=== PATIENT | female | born 1975 | race Caucasian/White ===

== ENCOUNTER 2021-05-19 06:38 | Day surgery (SDC) | payer OTHER, SELFPAY ==
[~2021-05-19] VITALS: Ht 165.1 cm; Wt 68.9 kg
[2021-05-19] MEDS ORDERED: PROPOFOL 200 MG/20 ML VIAL IV ONE (08:47)
[2021-05-19] MEDS ORDERED: MIDAZOLAM 2 MG/2 ML VIAL ONE (08:47)
[2021-05-19 08:48] LABS: BASOPHILS % (AUTO) 0.5 % (0.0-2.0); EOSINOPHILS # (AUTO) 0.1 K/uL (0-0.4); EOSINOPHILS % (AUTO) 1.3 % (0.0-4.0); HEMATOCRIT 40.8 % (36-48); HEMOGLOBIN 13.5 g/dL (12.0-16.0); LYMPHOCYTES # (AUTO) 1.3 K/uL (2.5-16.5); LYMPHOCYTES % (AUTO) 26.8 % (20.5-51.1); MEAN CORPUSCULAR HEMOGLOBIN 30 pg (27-31); MEAN CORPUSCULAR HGB CONC 33 g/dL (33-37); MEAN CORPUSCULAR VOLUME 88.9 fL (80-94); MONOCYTES # (AUTO) 0.4 K/uL (0.8-1.0); NEUTROPHILS # (AUTO) 3.2 K/uL (1.8-7.7); NEUTROPHILS % (AUTO) 64.4 % (42.2-75.2); PLATELET COUNT (AUTO) 180 K/uL (140-450); RED BLOOD CELL COUNT(AUTO) 4.59 MIL/uL (4.20-5.40); RED CELL DISTRIBUTION WIDTH 14.4 % (11.6-13.7)
[2021-05-19] MEDS ORDERED: fentaNYL citrate 0.05 MG/ML VIAL ONE (08:48)
[2021-05-19] MEDS ORDERED: LIDOCAINE MPF 2% 100 MG/5 ML VIAL INJ ONE (08:48)
[2021-05-19 09:02] LABS: ALBUMIN 3.4 g/dL (3.4-5.0); CARBON DIOXIDE 27.2 mmol/L (21-32); CREATININE 0.7 mg/dL (0.6-1.3); POTASSIUM 4.2 mmol/L (3.5-5.1); TOTAL BILIRUBIN 0.4 mg/dL (0.0-1.0)
[2021-05-20] MEDS ORDERED: HYDR-5080 PO (06:49)
[2021-05-20] MEDS ORDERED: ATEN25TA7 PO (06:49)
[2021-05-20] MEDS ORDERED: OMEP20EC11 PO (06:49)
== END 2021-05-19 11:20 | disposition home or self-care (01) ==
LOC: MMU 06:38 → MDS 06:38
PROVIDERS: ATTEND Internal Medicine Gastroenterology
DX: K83.1 Obstruction of bile duct (principal); I10 Essential (primary) hypertension; K21.9 Gastro-esophageal reflux disease without esophagitis; Z79.899 Other long term (current) drug therapy; Z20.822 Contact with and (suspected) exposure to COVID-19
CPT/HCPCS: 36415; 43261; 80053; 81025; 85025; 86677; J2001; J2250; J2704; J3010; J7120; Q9967; U0003; 77003

== ENCOUNTER 2021-05-20 00:01 | Inpatient (IN) | payer OTHER, SELFPAY ==
[~2021-05-20] VITALS: Ht 165.1 cm; Wt 68.5 kg
[2021-05-20 00:10] VITALS: BP 164/89
--- NOTE | 2021-05-20 00:10 | NUR ---
TO BED VIA WHEELCHAIR
--- NOTE | 2021-05-20 00:32 | NUR ---
46-year-old c/o abdominal pain. 10/10 pain in the epigastric that is constant and feels like pressure, tightening, and sharp. denies fevers and has been vomiting. difficulty tolerating anything through the mouth. Last bowel movement was normal this morning. No fevers. Patient states that when they did her ERCP they were unable to locate a gallstone. AAOx4. GCS15. PMH: HTN, hysterectomy nka
[2021-05-20] MEDS ORDERED: ONDANSETRON 4 MG/2 ML VIAL IVP ONE ×2 (00:35→04:15)
[2021-05-20] MEDS ORDERED: MORPHINE SULFATE 4 MG/ML SYR IVP ONE (00:35)
[2021-05-20 00:57] LABS: BASOPHILS % (AUTO) 0.1 % (0.0-2.0); HEMATOCRIT 44.9 % (36-48); HEMOGLOBIN 14.8 g/dL (12.0-16.0); LYMPHOCYTES # (AUTO) 0.9 K/uL (2.5-16.5); LYMPHOCYTES % (AUTO) 7.9 % (20.5-51.1); MEAN CORPUSCULAR HEMOGLOBIN 29 pg (27-31); MEAN CORPUSCULAR HGB CONC 33 g/dL (33-37); MEAN CORPUSCULAR VOLUME 88.5 fL (80-94); MONOCYTES # (AUTO) 0.5 K/uL (0.8-1.0); MONOCYTES % (AUTO) 4.6 % (1.7-9.3); NEUTROPHILS # (AUTO) 9.9 K/uL (1.8-7.7); NEUTROPHILS % (AUTO) 87.4 % (42.2-75.2); PLATELET COUNT (AUTO) 215 K/uL (140-450); RED BLOOD CELL COUNT(AUTO) 5.07 MIL/uL (4.20-5.40); RED CELL DISTRIBUTION WIDTH 14.4 % (11.6-13.7)
[2021-05-20 01:20] LABS: WHITE BLOOD COUNT (AUTO) 11.3 K/uL (4.8-10.8)
[2021-05-20 01:21] LABS: ALBUMIN 3.8 g/dL (3.4-5.0); ANION GAP 13.8 (8-16); CARBON DIOXIDE 26.7 mmol/L (21-32); CREATININE 0.7 mg/dL (0.6-1.3); POTASSIUM 3.5 mmol/L (3.5-5.1); TOTAL BILIRUBIN 1.6 mg/dL (0.0-1.0)
[2021-05-20] MEDS ORDERED: HYDROmorphone PFS 2 MG/ML SYR IVP SCH (02:10)
[2021-05-20] MEDS ORDERED: HYDROmorphone PFS 2 MG/ML SYR IVP ONE ×2 (02:25→04:15)
[2021-05-20] MEDS: NACL 0.9% 2,000 ML IV SCH ×2 (03:25→05:47)
[2021-05-20] MEDS ORDERED: KCL 20 MEQ/WATER INJ PREMIX 200 ML IV PRN (05:00)
[2021-05-20] MEDS ORDERED: MAGNESIUM OXIDE 400 MG TAB PO PRN (05:00)
[2021-05-20] MEDS ORDERED: MAG SULF 2000 MG/WATER PREMIX 50 ML IV PRN (05:00)
--- NOTE | 2021-05-20 05:26 | NUR ---
[facility] CALLED AND GAVE PT ROOM 111B
--- NOTE | 2021-05-20 05:39 | NUR ---
patient tele hold in bed 9
[2021-05-20] MEDS: HYDROcodone/APAP 5/325 MG 1 TAB TAB PO PRN ×3 (06:01→15:05)
--- NOTE | 2021-05-20 06:07 | NUR ---
patient disconnected from monitor and fluids and patient ambulated patient to the bathroom with a steady gait
[2021-05-20 06:42] LABS: BILIRUBIN,DIRECT 0.5 mg/dL (0.0-0.3); TOTAL BILIRUBIN 1.6 mg/dL (0.0-1.0)
[2021-05-20] MEDS ORDERED: ATEN25TA7 PO (06:49)
[2021-05-20] MEDS ORDERED: OMEP20EC11 PO (06:49)
[2021-05-20] MEDS ORDERED: HYDR-5080 PO (06:49)
[2021-05-20 07:05] LABS: BASOPHILS % (AUTO) 0.1 % (0.0-2.0); HEMATOCRIT 41.8 % (36-48); HEMOGLOBIN 13.9 g/dL (12.0-16.0); LYMPHOCYTES # (AUTO) 0.7 K/uL (2.5-16.5); MEAN CORPUSCULAR HEMOGLOBIN 30 pg (27-31); MEAN CORPUSCULAR HGB CONC 33 g/dL (33-37); MEAN CORPUSCULAR VOLUME 88.6 fL (80-94); MONOCYTES # (AUTO) 0.4 K/uL (0.8-1.0); NEUTROPHILS # (AUTO) 9.8 K/uL (1.8-7.7); NEUTROPHILS % (AUTO) 89.9 % (42.2-75.2); PLATELET COUNT (AUTO) 180 K/uL (140-450); RED BLOOD CELL COUNT(AUTO) 4.72 MIL/uL (4.20-5.40); RED CELL DISTRIBUTION WIDTH 14.7 % (11.6-13.7); WHITE BLOOD COUNT (AUTO) 10.9 K/uL (4.8-10.8)
[2021-05-20] MEDS: LACTATED RINGERS 1,000 ML IV SCH ×4 (07:05→21:17)
--- NOTE | 2021-05-20 07:13 | NUR ---
Pt report given to Katie REDDY. Transfer of care at this time.
--- NOTE | 2021-05-20 07:14 | NUR ---
REPORT RECEIVED FROM ANTONELLA RN FOR CONTUNITY OF CARE
[2021-05-20 07:16] LABS: ALBUMIN 3.1 g/dL (3.4-5.0); CREATININE 0.7 mg/dL (0.6-1.3); TOTAL BILIRUBIN 1.3 mg/dL (0.0-1.0)
--- NOTE | 2021-05-20 07:58 | NUR ---
PATIENT HAS BEEN SCREENED AND CATEGORIZED LOW NUTRITION RISK. PATIENT WILL BE SEEN WITHIN 7 DAYS OF ADMISSION. 05/24/[address]
--- NOTE | 2021-05-20 08:09 | NUR ---
Patient will be admitted to care of . Admited to TELE. Will go to room 111B. Belongings list completed. Report to MAUREEN LLANES. PT TAKEN WITH SUSIE, EMT
[2021-05-20 09:00] VITALS: BP 140/77
[2021-05-20] MEDS: ONDANSETRON 4 MG/2 ML VIAL IVP PRN ×2 (09:04→13:18)
[2021-05-20] MEDS: HYDROmorphone 1 MG/ML AMP IVP PRN ×3 (09:04→21:03)
[2021-05-20 12:00] VITALS: BP 139/68
[2021-05-20 16:00] VITALS: BP 145/87
--- NOTE | 2021-05-20 19:29 | NUR ---
RECEIVED PT REPORT FROM AM SHIFT RN. PT IS A&O X4, AMBULATORY. IVF LR 200ML/HR, 20 G LAC. ON ROOM AIR, SKIN INTACT. SAFETY MEASURES IN PLACE. PT STABLE. WILL CONTINUE TO MONITOR.
[2021-05-20 20:00] VITALS: BP 134/81
--- NOTE | 2021-05-20 21:03 | NUR ---
PT WAS FEELING PAIN IN ABDOMEN 04/14. ADMINISTERED PAIN MED. WILL REASSESS IN AN HOURS. HELPED PT AMBULATE TO THE BATHROOM. WILL CONTINUE TO MONITOR.
[2021-05-21] MEDS: ACETAMINOPHEN 325 MG TAB PO PRN (03:23)
[2021-05-21] MEDS: HYDROmorphone 1 MG/ML AMP IVP PRN ×5 (03:23→21:17)
--- NOTE | 2021-05-21 03:28 | NUR ---
ADMINISTERED PAIN MED FOR PT. STATED 9/10 PAIN AND SAID THE PAIN WAS INTERRUPTING SLEEP. WILL CONTINUE TO MONITOR.
[2021-05-21 04:00] VITALS: BP 126/82
--- NOTE | 2021-05-21 05:12 | NUR ---
PT'S MOM PAIGE CALLED. SHE WANTED TO KNOW THE STATUS OF HER DAUGHTER. I LET HER KNOW THAT PT HAS BEEN STABLE AND THE PAIN IS BEING TAKEN CARE OF WITH PAIN MEDS.
[2021-05-21] MEDS: LACTATED RINGERS 1,000 ML IV SCH ×3 (05:20→17:32)
[2021-05-21 07:05] LABS: HEMATOCRIT 39.5 % (36-48); HEMOGLOBIN 13.1 g/dL (12.0-16.0); LYMPHOCYTES % (AUTO) 12.2 % (20.5-51.1); MEAN CORPUSCULAR HEMOGLOBIN 29 pg (27-31); MEAN CORPUSCULAR HGB CONC 33 g/dL (33-37); MEAN CORPUSCULAR VOLUME 88.8 fL (80-94); MONOCYTES # (AUTO) 0.5 K/uL (0.8-1.0); MONOCYTES % (AUTO) 6.4 % (1.7-9.3); NEUTROPHILS # (AUTO) 6.5 K/uL (1.8-7.7); NEUTROPHILS % (AUTO) 81.4 % (42.2-75.2); PLATELET COUNT (AUTO) 168 K/uL (140-450); RED BLOOD CELL COUNT(AUTO) 4.45 MIL/uL (4.20-5.40); RED CELL DISTRIBUTION WIDTH 14.5 % (11.6-13.7)
[2021-05-21 07:35] LABS: ALBUMIN 2.8 g/dL (3.4-5.0); ANION GAP 14.4 (8-16); CARBON DIOXIDE 24.9 mmol/L (21-32); CHOL/HDL RATIO 2.9 (1-4.5); CREATININE 0.6 mg/dL (0.6-1.3); MAGNESIUM 1.9 mg/dL (1.8-2.4); POTASSIUM 3.3 mmol/L (3.5-5.1); TOTAL BILIRUBIN 1.4 mg/dL (0.0-1.0)
--- NOTE | 2021-05-21 07:45 | NUR ---
PASSED ON BEDSIDE ENDORSEMENT TO AM SHIFT RN. PT STABLE. CALL LIGHT WITHIN REACH, SAFETY MEASURES IN PLACE.
[2021-05-21 08:00] VITALS: BP 140/80
--- NOTE | 2021-05-21 08:00 | NUR ---
RECEIVED REPORT FROM ASSET PROTECTION OFFICER FOR CONTINUITY OF CARE. PATIENT ALERT AWAKE ORIENTED X4, NOT IN ANY DISTRESS NOTED. PATIENT ASLEEP BUT AROUSABLE. WITH IVF ON GOING AND INFUSING WELL. PATIENT C/O ABDOMINAL PAIN AND HEADACHE, MEDICATION NOT DUE YET EXPLAINED TO THE PATIENT VERBALIZED UNDERSTANDING. WILL CONTINUE TO MONITOR.
[2021-05-21] MEDS: PANTOPRAZOLE 40 MG TABEC PO SCH (08:50)
[2021-05-21] MEDS: POTASSIUM CHLORIDE 10 MEQ TABER PO PRN (08:51)
[2021-05-21] MEDS: atenoloL 25 MG TAB PO SCH (08:51)
--- NOTE | 2021-05-21 09:00 | NUR ---
SEEN BY DR. STEPHENS AND ORDER TO ADVANCE DIET TO CLEAR LIQUID. PATIENT IS ASKING FOR COFFEE, EXPLAINED TO THE PATIENT THAT SHE'S ON CLEAR LIQUID, WILL CALL MD. WILL CONTINUE TO MONITOR.
--- NOTE | 2021-05-21 12:07 | NUR ---
DR. ZHANG CALLED AND AGREED ON COFFEE BUT JUST ONCE EXPALINED TO THE PATIENT AND VERBALIZED UNDERSTANDING.
--- NOTE | 2021-05-21 13:04 | NUR ---
C/O SEVERE HEADACHE AND ABOMINAL PAIN WITH NAUSEA, MEIDCATION GIVEN ORDERED. WILL CONTINUE TO MONITOR.
[2021-05-21] MEDS: ONDANSETRON 4 MG/2 ML VIAL IVP PRN (13:09)
[2021-05-21] MEDS ORDERED: FENTANYL C 0.025 MG/HR PATCH TD SCH (14:30)
[2021-05-21] MEDS ORDERED: FENTANYL C 0.025 MG/HR PATCH TD ONE (15:45)
[2021-05-21 16:00] VITALS: BP 145/85
--- NOTE | 2021-05-21 16:07 | NUR ---
DURAGESIC PATCH GIVEN AND PLACED ON THE RIGHT UPPER ARM. WILL CONTINUE TO MONITOR.
--- NOTE | 2021-05-21 17:00 | NUR ---
SPOKE TO DR. KATZ AND DR. ZHANG THAT PATIENT IS STILL UNDECIDED IF SHE WILL AGREE ON SURGERY, DR. KATZ EXPLAINED THE PROCEDURE AT BEDSIDE. SHE SAID SHE WILL THINK ABOUT IT AND SHE WILL DISCUSS TO HIS . I INFORMED HER THAT DR. KATZ SCHEDULE IT FOR 12 NOON TMW, PACKING AND FINAL ASSEMBLY SUPERVISOR NOTIFIED. PATIENT WILL TELL THE NURSE TOMORROW AND PATIENT WILL KEEP NPO AFTER MIDNIGHT PATIENT VERBALIZED UNDERSTANDING.
--- NOTE | 2021-05-21 17:37 | NUR ---
PATIENT COMPLAIN OF ABDOMINAL PAIN AND HEADACHE 8/, MEDICATED WITH DILAUDID ORDER. WILL CONTINUE TO MONITOR.
--- NOTE | 2021-05-21 19:30 | NUR ---
REPORT GIVEN TO MAUREEN WATERMAN FOR CONTINUITY OF CARE. PATIENT IN STABLE CONDITION.
--- NOTE | 2021-05-21 19:35 | NUR ---
RECEIVED PT ON BED, AAOX4, ABLE TO MAKE NEEDS KNOWN, CLEAR LIQUID DINNER TRAY PROVIDED, TOLERATED WELL, COMPLAINING OF ABDOMINAL PAIN, WILL MEDICATE WHEN DUE, IVF INFUSING WELL, PLAN OF CARE DISCUSSED, SAFETY MEASURES IN PLACE, CALL LIGHT WITHIN REACH.
[2021-05-21 20:00] VITALS: BP 142/77
--- NOTE | 2021-05-22 | NUR ---
SEEN PT SLEEPING, VISIBLE CHEST RISE AND FALL, NO SIGNS OF DISTRESS, IVF INFUSING WELL, NPO AFTER MIDNIGHT STATUS, CONTINUE TO MONITOR CLOSELY.
[2021-05-22] MEDS: HYDROmorphone 1 MG/ML AMP IVP PRN ×5 (01:28→22:14)
--- NOTE | 2021-05-22 01:28 | NUR ---
PT AWAKE COMPLAINING OF PAIN, AMBULATED TO BR AND VOIDED FREELY, MEDICATED PRN FOR PAIN WITH DILAUDID IVP ORDERED, PT STATED SHE DECIDED TO GO WITH LAP CHOLECYSTECTOMY TODAY, MAINTAINED ON NPO AFTER MIDNIGHT, WILL ENDORSE TO AM SHIFT, IVF INFUSING WELL.
[2021-05-22] MEDS: LACTATED RINGERS 1,000 ML IV SCH ×3 (02:39→19:50)
[2021-05-22 04:00] VITALS: BP 124/75
[2021-05-22] MEDS: ACETAMINOPHEN 325 MG TAB PO PRN (05:04)
--- NOTE | 2021-05-22 05:20 | NUR ---
PT COMPLAINING OF HEADACHE AND ABDOMINAL PAIN, MEDICATED PRN WITH DILAUDID IVP, ICE PACK PROVIDED PER REQUEST FOR HEADACHE, MAINTAIN ON NPO FOR SURGERY TODAY, IVF INFUSING WELL, MONITORED CLOSELY.
[2021-05-22 06:53] LABS: BASOPHILS % (AUTO) 0.1 % (0.0-2.0); EOSINOPHILS % (AUTO) 0.2 % (0.0-4.0); HEMATOCRIT 37.6 % (36-48); HEMOGLOBIN 12.6 g/dL (12.0-16.0); LYMPHOCYTES # (AUTO) 0.8 K/uL (2.5-16.5); LYMPHOCYTES % (AUTO) 10.9 % (20.5-51.1); MEAN CORPUSCULAR HEMOGLOBIN 30 pg (27-31); MEAN CORPUSCULAR HGB CONC 33 g/dL (33-37); MEAN CORPUSCULAR VOLUME 88.8 fL (80-94); MONOCYTES # (AUTO) 0.6 K/uL (0.8-1.0); MONOCYTES % (AUTO) 7.9 % (1.7-9.3); NEUTROPHILS # (AUTO) 6.1 K/uL (1.8-7.7); NEUTROPHILS % (AUTO) 80.9 % (42.2-75.2); PLATELET COUNT (AUTO) 153 K/uL (140-450); RED BLOOD CELL COUNT(AUTO) 4.23 MIL/uL (4.20-5.40); RED CELL DISTRIBUTION WIDTH 14.3 % (11.6-13.7); WHITE BLOOD COUNT (AUTO) 7.5 K/uL (4.8-10.8)
--- NOTE | 2021-05-22 07:20 | NUR ---
PT SLEEPING, NO SIGNS OF DISTRESS, REPORT GIVEN TO MAUREEN RICKETTS FOR CONTINUITY OF CARE.
[2021-05-22 07:49] LABS: ALBUMIN 2.6 g/dL (3.4-5.0); ANION GAP 15.1 (8-16); CARBON DIOXIDE 24.4 mmol/L (21-32); CREATININE 0.5 mg/dL (0.6-1.3); POTASSIUM 3.5 mmol/L (3.5-5.1); TOTAL BILIRUBIN 1.1 mg/dL (0.0-1.0)
[2021-05-22 08:00] VITALS: BP 119/73
--- NOTE | 2021-05-22 08:00 | NUR ---
RECEIVED REPORT FROM MAUREEN WATERMAN FOR CONTINUITY OF CARE. PATIENT ALERT AWAKE ORIENTED X4, NOT IN ANY DISTRESS NOTED. WITH IVF ON GOING AND INFUSING WELL. PAIN ASSESSMENT PATIENT STILL WITH PAIN ON HER ABDOMEN AND HEADACHE. EXPLAINED TO HER THAT MEDICATION IS NOT DUE YET. IVF ON GOING AND INFUSING WELL. NPO OBSERVED FOR SURGERY TODAY. NEEDS ATTENDED. WILL CONTINUE TO MONITOR.
[2021-05-22] MEDS: ONDANSETRON 4 MG/2 ML VIAL IVP PRN (09:25)
[2021-05-22] MEDS: atenoloL 25 MG TAB PO SCH (09:25)
[2021-05-22] MEDS: PANTOPRAZOLE 40 MG TABEC PO SCH (09:25)
--- NOTE | 2021-05-22 10:00 | NUR ---
SEEN BY DR. ZHANG AND DISCUSSED THE PLAN OF CARE.
[2021-05-22] MEDS ORDERED: SUMAtriptan succinate 25 MG TAB PO PRN (10:40)
[2021-05-22 16:00] VITALS: BP 112/65
[2021-05-22] MEDS ORDERED: BUPIVACAINE-MPF/EPI 0.25% 30 ML VIAL INJ ONE (17:46)
--- NOTE | 2021-05-22 18:00 | NUR ---
PATIENT OFF FLOOR , WENT TO OR. IN STABLE CONDITION.
[2021-05-22] MEDS ORDERED: SEVOFLURANE 250 ML BTL INH ONE (18:15)
[2021-05-22] MEDS ORDERED: fentaNYL citrate 0.05 MG/ML VIAL ONE (18:23)
[2021-05-22] MEDS ORDERED: MIDAZOLAM 2 MG/2 ML VIAL ONE (18:24)
[2021-05-22] MEDS ORDERED: SUCCINYLCHOLINE CHLORIDE 200 MG/10 ML VIAL IVP ONE (19:06)
[2021-05-22] MEDS ORDERED: ROCURONIUM 50 MG/5 ML VIAL IV ONE (19:07)
[2021-05-22] MEDS ORDERED: ceFAZolin 1,000 MG VIAL ONE ×2 (19:07)
[2021-05-22] MEDS ORDERED: METOCLOPRAMIDE 10 MG/2 ML INJ VIAL ONE (19:07)
[2021-05-22] MEDS ORDERED: DEXAMETHASONE 4 MG/ML VIAL ONE ×2 (19:07)
[2021-05-22] MEDS ORDERED: LIDOCAINE 2% 100 MG/5 ML SYR IVP ONE (19:11)
[2021-05-22] MEDS ORDERED: PROPOFOL 200 MG/20 ML VIAL IV ONE (19:11)
[2021-05-22] MEDS ORDERED: KETOROLAC 30 MG/ML VIAL ONE (19:15)
[2021-05-22] MEDS ORDERED: ONDANSETRON 4 MG/2 ML VIAL ONE (19:20)
[2021-05-22] MEDS ORDERED: GLYCOPYRROLATE 0.2 MG/ML VIAL ONE ×2 (19:22)
[2021-05-22] MEDS ORDERED: NEOSTIGMINE 1:1000 10 MG/10 ML VIAL ONE (19:22)
[2021-05-22] MEDS ORDERED: MORPHINE SULFATE 4 MG/ML SYR IV PRN (19:40)
[2021-05-22] MEDS ORDERED: HYDROmorphone 1 MG/ML AMP IVP PRN (19:50)
[2021-05-22] MEDS ORDERED: ONDANSETRON 4 MG/2 ML VIAL IVP PRN (19:50)
[2021-05-22] MEDS ORDERED: MEPERIDINE 25 MG/ML SYR IVP PRN (19:50)
--- NOTE | 2021-05-22 19:50 | NUR ---
REPORT GIVENB TO TEST RACK OPERATOR FOR CONTINUITY OF CARE. PATIENT IS STILL IN OR.
[2021-05-22] MEDS ORDERED: HYDROmorphone PFS 2 MG/ML SYR ONE (20:05)
[2021-05-23] MEDS: MORPHINE SULFATE 2 MG/ML SYR IVP PRN ×4 (00:56→23:58)
[2021-05-23] MEDS: HYDROmorphone 1 MG/ML AMP IVP PRN ×2 (03:38→09:36)
[2021-05-23 04:00] VITALS: BP 115/68
[2021-05-23] MEDS: LACTATED RINGERS 1,000 ML IV SCH ×3 (06:30→23:31)
--- NOTE | 2021-05-23 07:15 | NUR ---
RECEIVED REPORT FROM ASSEMBLY MEMBER NURSE FOR CONTINUITY OF CARE. PATIENT STABLE. NO S/S OF DISTRESS. BREATHING SYMMETRICAL. FLUIDS RUNNING PER MD ORDER, IV INTACT, DRY, PATENT. CALL LIGHT IN REACH. ALL SAFETY MEASURES IN PLACE.
[2021-05-23 07:35] LABS: BASOPHILS % (AUTO) 0.2 % (0.0-2.0); EOSINOPHILS % (AUTO) 0.2 % (0.0-4.0); HEMATOCRIT 37.4 % (36-48); HEMOGLOBIN 12.5 g/dL (12.0-16.0); LYMPHOCYTES # (AUTO) 0.9 K/uL (2.5-16.5); LYMPHOCYTES % (AUTO) 14.2 % (20.5-51.1); MEAN CORPUSCULAR HEMOGLOBIN 30 pg (27-31); MEAN CORPUSCULAR HGB CONC 34 g/dL (33-37); MEAN CORPUSCULAR VOLUME 88.6 fL (80-94); MONOCYTES # (AUTO) 0.5 K/uL (0.8-1.0); MONOCYTES % (AUTO) 7.1 % (1.7-9.3); NEUTROPHILS % (AUTO) 78.3 % (42.2-75.2); PLATELET COUNT (AUTO) 180 K/uL (140-450); RED BLOOD CELL COUNT(AUTO) 4.22 MIL/uL (4.20-5.40); RED CELL DISTRIBUTION WIDTH 14.3 % (11.6-13.7); WHITE BLOOD COUNT (AUTO) 6.4 K/uL (4.8-10.8)
[2021-05-23 07:45] LABS: ALBUMIN 2.6 g/dL (3.4-5.0); ANION GAP 16.7 (8-16); CARBON DIOXIDE 21.7 mmol/L (21-32); CREATININE 0.5 mg/dL (0.6-1.3); MAGNESIUM 1.9 mg/dL (1.8-2.4); POTASSIUM 3.4 mmol/L (3.5-5.1)
[2021-05-23 08:00] VITALS: BP 156/87
[2021-05-23] MEDS: PANTOPRAZOLE 40 MG TABEC PO SCH (08:53)
[2021-05-23] MEDS: atenoloL 25 MG TAB PO SCH (08:53)
--- NOTE | 2021-05-23 09:16 | NUR ---
DC PLANNING: CM SPOKE WITH THE PATIENT AT BEDSIDE, CONFIRMED HER ADDRESS AND PHONE NUMBER PER THE FACE SHEET. THE PATIENT LIVES IN A SINGLE STORY HOUSE WITH HER CHILDREN AND GRANDCHILDREN AND HAS NO H/O HOME HEALTH OR DME USE. THE PATIENT IS S/P LAP LUCIE ON 05/22 AND C/O CONSIDERABLE PAIN TODAY, IS TAKING MORPHINE AND DILAUDID IV. SHE STATES THAT HER SISTER WILL STAY WITH HER TO PROVIDE ASSISTANCE WHEN SHE IS DISCHARGED. DC PLAN IS FOR THE PATIENT TO RETURN HOME WITH FAMILY, CM WILL FOLLOW FOR NEEDS.
[2021-05-23] MEDS: POTASSIUM CHLORIDE 10 MEQ TABER PO PRN (09:38)
--- NOTE | 2021-05-23 09:38 | NUR ---
PATIENT COMPLAINED OF PAIN 04/14. PATIENT MEDICATED PER MD ORDER. EDUCATED PT ON MEDICATION GIVEN. PT VERBALIZED UNDERSTANDING. NO S/S OF DISTRESS. BREAKFAST TRAY AT BEDSIDE. IV FLUIDS RUNNING PER MD ORDERS. CALL LIGHT IN REACH. ALL SAFETY MEASURES IN PLACE.
--- NOTE | 2021-05-23 12:01 | NUR ---
PT RESTING IN BED. STABLE. NO S/S OF DISTRESS. BREATHING SYMMETRICAL. CALL LIGHT IN REACH. ALL SAFETY MEASURES IN PLACE
--- NOTE | 2021-05-23 12:37 | NUR ---
PATIENT COMPLAINED OF PAIN 03/14. MEDICATED PT PER MD ORDERS. EDUCATED PT ON MEDICATION GIVEN. PT VERBALIZED UNDERSTANDING. CALL LIGHT IN REACH. ALL SAFETY MEASURES IN PLACE. WILL REASSESS.
[2021-05-23] MEDS ORDERED: SIMETHICONE 80 MG TAB.CHEW PO PRN (12:55)
[2021-05-23] MEDS: HYDROcodone/APAP 5/325 MG 1 TAB TAB PO PRN (15:40)
--- NOTE | 2021-05-23 15:40 | NUR ---
PT COMPLAINED OF PAIN 01/12. PATIENT REFUSE PAIN MEDICATION.
--- NOTE | 2021-05-23 18:45 | NUR ---
PATIENT COMPLAINED OF PAIN 03/14. MEDICATED PER MD ORDER. EDUCATED ON MEDICATION GIVEN. PATIENT VERBALIZED UNDERSTANDING. IV RUNNING PER MD ORDERS. CALL LIGHT IN REACH. NO S/S OF DISTRESS. ALL SAFETY MEASURES. IN PLACE.
--- NOTE | 2021-05-23 19:35 | NUR ---
ENDORSED PT TO CUT OFF SAWYER LOG NURSE. PT STABLE. NO S/S OF DISTRESS. CALL LIGHT IN REACH. ALL SAFETY MEASURES IN PLACE.
--- NOTE | 2021-05-23 19:40 | NUR ---
RECEIVED ENDORSEMENT FROM MORNING SHIFT NURSE REGARDING CONTINUITY OF CARE. PATIENT STABLE IN BED. A/AOX4. RESPIRATIONS EVEN AND UNLABORED. NO SIGNS OF ACUTE RESPIRATORY DISTRESS NOTED AT THIS TIME. O2 AT 96% RA. LR RUNNING AT 120 ML/HR PER MD ORDER. IV ON LEFT AC 20G IV. INTACT AND PATENT. DENIES PAIN 0/10. CALL LIGHT IN REACH. ALL SAFETY MEASURES IN PLACE. WILL CONTINUE WITH CURRENT PLAN OF CARE.
[2021-05-23 20:00] VITALS: BP 137/72
--- NOTE | 2021-05-23 21:40 | NUR ---
CHECKED ON PATIENT. STABLE IN BED SLEEPING. RESPIRATIONS EVEN AND UNLABORED. NO SIGNS OF ACUTE RESPIRATORY DISTRESS NOTED AT THIS TIME. ALL SAFETY MEASURES IN PLACE. CALL LIGHT WITHIN REACH. WILL CONTINUE TO MONITOR.
--- NOTE | 2021-05-23 22:17 | NUR ---
Patient's Plan of Care was discussed and reviewed with PHOTOGRAPHIC INTELLIGENCE OFFICER: ROB HAYES
--- NOTE | 2021-05-23 23:45 | NUR ---
ANSWERED CALL LIGHT. PATIENT C/O PAIN 10/12. ENDORSED TO CHARGE NURSE MARIS TO ADMINISTER IV PAIN MEDICATION.
--- NOTE | 2021-05-24 00:15 | NUR ---
IV INFILTRATED. NEW IV LINE INSERTED BY CHARGE NURSE MARIS AT THE RIGHT AC G24. REMINDED TO TAKE GOOD CARE OF HER IV LINE BECAUSE SHE IS HARD STICK. VERBALIZED UNDERSTANDING.
[2021-05-24 03:55] VITALS: BP 148/88
[2021-05-24] MEDS: MORPHINE SULFATE 2 MG/ML SYR IVP PRN ×2 (04:03→09:11)
--- NOTE | 2021-05-24 04:05 | NUR ---
COMPLAINT OF ABDOMINAL PAIN ATTENDED PROMPTLY, MEDICATED PER MD ORDER BY CHARGE NURSE MARIS. TEACHINGS ON PAIN MANAGEMENT GIVEN. VERBALIZED UNDERSTANDING.
[2021-05-24] MEDS: LACTATED RINGERS 1,000 ML IV SCH ×2 (05:14→13:32)
[2021-05-24 06:56] LABS: BASOPHILS % (AUTO) 0.3 % (0.0-2.0); EOSINOPHILS % (AUTO) 0.7 % (0.0-4.0); HEMATOCRIT 38.1 % (36-48); HEMOGLOBIN 12.6 g/dL (12.0-16.0); LYMPHOCYTES # (AUTO) 0.8 K/uL (2.5-16.5); LYMPHOCYTES % (AUTO) 14.7 % (20.5-51.1); MEAN CORPUSCULAR HEMOGLOBIN 29 pg (27-31); MEAN CORPUSCULAR HGB CONC 33 g/dL (33-37); MEAN CORPUSCULAR VOLUME 88.7 fL (80-94); MONOCYTES # (AUTO) 0.4 K/uL (0.8-1.0); NEUTROPHILS # (AUTO) 4.3 K/uL (1.8-7.7); NEUTROPHILS % (AUTO) 77.3 % (42.2-75.2); PLATELET COUNT (AUTO) 205 K/uL (140-450); RED BLOOD CELL COUNT(AUTO) 4.29 MIL/uL (4.20-5.40); RED CELL DISTRIBUTION WIDTH 14.1 % (11.6-13.7); WHITE BLOOD COUNT (AUTO) 5.6 K/uL (4.8-10.8)
--- NOTE | 2021-05-24 07:09 | NUR ---
ENDORSED PATIENT TO MORNING SHIFT FOR CONTINUITY OF CARE. PATIENT IS STABLE.
--- NOTE | 2021-05-24 07:10 | NUR ---
RECEIVE REPORT FROM FURNITURE LUMBER PRODUCTION WORKER NURSE FOR CONTINUITY OF CARE. PATIENT SLEEPING NO ACUTE DISTRESS NOTED. PATIENT ON ROOM AIR. CALL LIGHT WITHIN REACH. WILL CONTINUE TO MONITOR.
[2021-05-24 07:22] LABS: ALBUMIN 2.5 g/dL (3.4-5.0); ANION GAP 12.5 (8-16); CARBON DIOXIDE 26.8 mmol/L (21-32); CREATININE 0.4 mg/dL (0.6-1.3); MAGNESIUM 1.9 mg/dL (1.8-2.4); POTASSIUM 3.3 mmol/L (3.5-5.1); TOTAL BILIRUBIN 0.6 mg/dL (0.0-1.0)
--- NOTE | 2021-05-24 07:58 | NUR ---
ENDORSED REPORT TO GRICELDA REDDY FOR CONTINUITY OF PATIENT CARE.
[2021-05-24 08:00] VITALS: BP 145/94
[2021-05-24] MEDS: atenoloL 25 MG TAB PO SCH (09:11)
[2021-05-24] MEDS: PANTOPRAZOLE 40 MG TABEC PO SCH (09:11)
[2021-05-24] MEDS ORDERED: MORPHINE SULFATE 2 MG/ML SYR IVP PRN (10:10)
[2021-05-24] MEDS ORDERED: ACET-1182 PO (12:25)
[2021-05-24] MEDS ORDERED: ACET-9525 PO (12:25)
[2021-05-24] MEDS ORDERED: SIME80CT43 PO (12:25)
[2021-05-24] MEDS ORDERED: PANT40EC56 PO (12:25)
[2021-05-24] MEDS ORDERED: IBUP-2213 PO (12:25)
[2021-05-24] MEDS ORDERED: IMI25 PO (12:25)
[2021-05-24] MEDS ORDERED: DOCU-299 PO (12:25)
[2021-05-24] MEDS ORDERED: DOCUSATE SODIUM 100 MG GELCAP PO SCH (13:00)
[2021-05-24] MEDS: HYDROcodone/APAP 5/325 MG 1 TAB TAB PO PRN (13:09)
[2021-05-24] MEDS: POTASSIUM CHLORIDE 10 MEQ TABER PO PRN (13:25)
[2021-05-24] MEDS ORDERED: FENTANYL C 0.05 MG/HR PATCH TD SCH (14:30)
== END 2021-05-24 19:50 | disposition home or self-care (01) | DRG 263 ==
LOC: MED 00:01 → MTU 05:39
PROVIDERS: ADMIT Internal Medicine; ATTEND Internal Medicine
PROC: 0FT44ZZ Resection of Gallbladder, Percutaneous Endoscopic Approach (ICD-10-PCS; principal; 2021-05-24)
DX: K80.00 Calculus of gallbladder with acute cholecystitis without obstruction (principal); K85.90 Acute pancreatitis without necrosis or infection, unspecified; F43.9 Reaction to severe stress, unspecified; K80.20 Calculus of gallbladder without cholecystitis without obstruction; I10 Essential (primary) hypertension; G43.909 Migraine, unspecified, not intractable, without status migrainosus; Z20.822 Contact with and (suspected) exposure to COVID-19; Z90.710 Acquired absence of both cervix and uterus
CPT/HCPCS: 36415; 76705; 80053; 81025; 82247; 82248; 82374; 83690; 83735; 85025; 88304; 96361; 96374; 96375; 99285; J0330; J0690; J1100; J1170; J1885; J2001; J2250; J2270; J2405; J2704; J2710; J2765; J3010; J3480; J3490; J7030; J7120; Q0092; Q9967